=== PATIENT | female | born 1990 | race Two or more races ===

== ENCOUNTER 2023-08-23 11:17 | Observation (INO) | payer MEDICAID | END 2023-08-23 13:11 | disposition home or self-care (01) | LOC: UNDOADMOB 11:17 → LDRP 11:17 → UNDODISOB 13:11 | PROVIDERS: ADMIT Obstetrics & Gynecology; ATTEND Obstetrics & Gynecology | DX: O24.419 Gestational diabetes mellitus in pregnancy, unspecified control (principal); Z3A.32 32 weeks gestation of pregnancy | CPT/HCPCS: 59025; 76818; 81002; 82948; 94760; G0378 ==

== ENCOUNTER 2023-08-30 10:50 | Observation (INO) | payer MEDICAID | END 2023-08-30 12:01 | disposition home or self-care (01) | LOC: LDRP 10:50 → UNDOADMOB 10:50 → LDRP 10:57 → UNDODISOB 12:01 | PROVIDERS: ADMIT Obstetrics & Gynecology; ATTEND Obstetrics & Gynecology | DX: O24.419 Gestational diabetes mellitus in pregnancy, unspecified control (principal); O26.893 Other specified pregnancy related conditions, third trimester; R51.9 Headache, unspecified; Z3A.33 33 weeks gestation of pregnancy | CPT/HCPCS: 59025; 76818; 81002; 82948; 82962; 94760; G0378 ==

== ENCOUNTER 2023-09-06 11:30 | Observation (INO) | payer MEDICAID ==
[2023-09-06] MEDS ORDERED: PREN27TA7 OR (12:46)
== END 2023-09-06 12:52 | disposition home or self-care (01) ==
LOC: LDRP 11:30 → UNDOADMOB 11:30 → LDRP 11:41 → UNDODISOB 12:52
PROVIDERS: ADMIT Obstetrics & Gynecology; ATTEND Obstetrics & Gynecology
DX: O24.419 Gestational diabetes mellitus in pregnancy, unspecified control (principal); Z3A.34 34 weeks gestation of pregnancy
CPT/HCPCS: 59025; 76818; 81002; 82962; 94760; G0378

== ENCOUNTER 2023-09-13 09:20 | Observation (INO) | payer MEDICAID ==
[~2023-09-13 09:20] MED LIST: PREN27TA7 OR
== END 2023-09-13 13:28 | disposition home or self-care (01) ==
LOC: LDRP 11:05
PROVIDERS: ADMIT Obstetrics & Gynecology; ATTEND Obstetrics & Gynecology
DX: O24.419 Gestational diabetes mellitus in pregnancy, unspecified control (principal); Z3A.35 35 weeks gestation of pregnancy
CPT/HCPCS: 59025; 76818; 81002; 82948; 94760; G0378

== ENCOUNTER 2023-09-21 10:13 | Observation (INO) | payer MEDICAID | END 2023-09-21 14:45 | disposition home or self-care (01) | LOC: OVERFLOW 10:13 → LDRP 11:29 | PROVIDERS: ADMIT Obstetrics & Gynecology; ATTEND Obstetrics & Gynecology | DX: O24.419 Gestational diabetes mellitus in pregnancy, unspecified control (principal); Z3A.36 36 weeks gestation of pregnancy | CPT/HCPCS: 59025; 76818; 81002; 82962; 94760; G0378 ==

== ENCOUNTER 2023-09-23 08:00 | Observation (INO) | payer MEDICAID | END 2023-09-23 10:36 | disposition home or self-care (01) | LOC: LDRP 08:00 | PROVIDERS: ADMIT Obstetrics & Gynecology; ATTEND Obstetrics & Gynecology | DX: O24.419 Gestational diabetes mellitus in pregnancy, unspecified control (principal); Z3A.37 37 weeks gestation of pregnancy | CPT/HCPCS: 59025; 76818; 81002; 82948; 82962; G0378 ==

== ENCOUNTER 2023-10-03 09:04 | Observation (INO) | payer MEDICAID ==
[2023-10-05] MEDS ORDERED: IBUP-1455 PO (01:39)
== END 2023-10-03 10:48 | disposition home or self-care (01) ==
LOC: UNDOADMOB 09:07 → LDRP 09:07 → UNDODISOB 10:48
PROVIDERS: ADMIT Obstetrics & Gynecology; ATTEND Obstetrics & Gynecology
DX: O24.419 Gestational diabetes mellitus in pregnancy, unspecified control (principal); O62.9 Abnormality of forces of labor, unspecified; Z3A.38 38 weeks gestation of pregnancy
CPT/HCPCS: 59025; 76818; 81002; 82948; 82962; 94760; G0378

== ENCOUNTER → 2024-04-23 | Outpatient (CLI) | payer MEDICAID ==
[~2024-04-23] MED LIST changes: +IBUP-1455 PO
[2024-04-23 09:19] LABS: Basophils # (auto) 0.1 10 ^3/uL (0-0.2); Basophils % (auto) 0.9 % (0.0-2.0); Eosinophils # (auto) 0.1 10 ^3/uL (0-0.8); Eosinophils % (auto) 1.5 % (0.0-7.0); Hematocrit 42.2 % (36.0-46.0); Hemoglobin 14.4 g/dL (12.2-16.2); Lymphocytes # (auto) 2.2 10 ^3/uL (0.4-5.4); Mean Corpuscular Hemoglobin 29.5 pg (28.0-32.0); Mean Corpuscular Hgb Conc. 34.2 g/dL (32.0-36.0); Mean Corpuscular Volume 86.1 fL (80.0-100.0); Monocytes # (auto) 0.3 10 ^3/uL (0-1.3); Neutrophils # (auto) 4.2 10 ^3/uL (1.6-8.6); Neutrophils % (auto) 60.6 % (37.0-80.0); Nucleated Red Blood Cells % 0.2 %; Red Cell Distribution Width 13.3 % (11.8-14.3); White Blood Cell 6.9 10^3/uL (4.4-10.8)
[2024-04-23 10:07] LABS: Alanine Aminotransferase 23 U/L (7-40); Alkaline Phosphatase 132 U/L (46-116); Anion Gap 8 (5-15); Aspartate Aminotransferase < 8 U/L (13-40); BUN/Creatinine Ratio 11.5 (10.0-20.0); Bilirubin, Total 0.6 mg/dL (0.2-1.0); Blood Urea Nitrogen 9 mg/dL (9-23); Calcium 10.4 mg/dL (8.7-10.4); Carbon Dioxide 27 mmol/L (20-30); Chloride 106 mmol/L (98-107); Cholesterol 171 mg/dL (< 200); Glucose 99 mg/dL (74-106); HDL Cholesterol 46 mg/dL (40-59); LDL Cholesterol 120 mg/dL (< 100); Potassium 4.3 mmol/L (3.5-5.1); Sodium 141 mmol/L (136-145); Triglycerides 110 mg/dL (< 150)
== END | disposition home or self-care (01) ==
LOC: LAB 08:55
DX: Z13.21 Encounter for screening for nutritional disorder (principal); R73.03 Prediabetes; Z68.35 Body mass index [BMI] 35.0-35.9, adult
CPT/HCPCS: 36415; 80053; 80061; 82306; 83036; 84436; 84443; 85025

== ENCOUNTER 2025-04-27 17:08 | Inpatient (IN) | payer MEDICAID ==
[~2025-04-27] VITALS: Ht 160 cm; Wt 103.9 kg
[2025-04-27] MEDS ORDERED: PANTOPRAZOLE 40 MG/10 ML VIAL INJ IV ONE (17:45)
--- NOTE | 2025-04-27 17:53 | ED.PDOC ---
GI ASSESSMENT HPI Comments 34y F who presents to the ED for chief complaint of abdominal pain. Pt states she has been having abdominal pain for the past few months since she gave . Pt states the symptoms exacerbated so she came to the ED today for further evaluation. Pt states her pain is diffusely located, intermittent, radiating to the back, rating the pain 8/10, with no associated exacerbating or relieving factors. Pt has associated shortness of breath and nausea but denies any other symptoms. Pt denies any other symptoms at this time. Chief Complaint: Abdominal Pain Time Seen by MD: 17:51 Reviewed Notes: Nurses Notes, Medications, Allergies Allergies: Coded Allergies: NO KNOWN ALLERGIES (Unverified , 10/04/23) Home Meds Active Scripts Ibuprofen Micronized (Ibuprofen) 800 Mg Tab, 800 MG PO Q6HR PRN, #30 TAB Prov:KOSTAS JACKSON DO 10/05/23 Reported Medications Vit W/ Ferrous Fumara () 1 Tab Tab, 1 TAB OR, TAB 09/06/23 Information Source: Patient Mode of Arrival: Ambulatory Brought in by: self Timing: Weeks, Months Duration: Since onset Prehospital treatment: None Quality: Aching, Sharp Vomitus: None Stool: Normal Severity: Moderate Recent: None Recent Hx of: None Pain Location: Diffuse Modifying Factors: Nothing Associated sign and symptoms: Nausea, Abdominal Pain, Other (shortness of breath) Past Medical History PAST MEDICAL HISTORY: Denies Surgical History: Denies all surgeries PHLEBOTOMIST ASSOCIATE History: Denies all PHLEBOTOMIST ASSOCIATE Hx Family History Family History: Reviewed,noncontributory to illness Social History Smoker: Non-Smoker Alcohol: Denies ETOH Use Drugs: Denies Drug Use Lives In: Home Constitutional: denies: chills, diaphoresis, fatigue, fever, malaise, sweats, weakness, others EENTM: denies: blurred vision, double vision, ear bleeding, ear discharge, ear drainage, ear pain, ear ringing, eye pain, eye redness, hearing loss, mouth pain, mouth swelling, nasal discharge, nose bleeding, nose congestion, nose pain, photophobia, tearing, throat pain, throat swelling, voice changes, others Respiratory: reports: shortness of breath; denies: cough, hemoptysis, orthopnea, SOB at rest, SOB with excertion, stridor, wheezing, others Cardiovascular: denies: chest pain, dizzy spells, diaphoresis, Dyspnea on exertion, edema, irregular heart beat, left arm pain, lightheadedness, palpitations, PND, syncope, others Gastrointestinal: reports: abdominal pain, nausea; denies: abdomen distended, blood streaked bowels, constipated, diarrhea, dysphagia, difficulty swallowing, hematemesis, melena, poor appetite, poor fluid intake, rectal bleeding, rectal pain, vomiting, others Genitourinary: denies: abnormal vagina bleeding, burning, dyspareunia, dysuria, flank pain, frequency, hematuria, incontinence, pain, , vagina discharge, urgency, others Neurological: denies: dizziness, fainting, headache, left sided numbness, left sided weakness, numbness, paresthesia, pre-existing deficit, right sided numbness, right sided weakness, seizure, speech problems, tingling, tremors, weakness, others Musculoskeletal: denies: back pain, gout, joint pain, joint swelling, muscle pain, muscle stiffness, neck pain, others Integumetry: denies: bruises, change in color, change in hair/nails, dryness, laceration, lesions, lumps, rash, wounds, others Allergic/Immunocompromised: denies: Difficulty Healing, Frequent Infections, Hives, Itching, others Hematologic/Lymphatic: denies: anemia, blood clots, easy bleeding, easy bruising, swollen glands, others Endocrine: denies: excessive hunger, excessive sweating, excessive thirst, excessive urination, flushing, intolerance to cold, intolerance to heat, unexplained weight gain, unexplained weight loss, others Psychiatric: denies: anxiety, bipolar disorder, depression, hopeless, panic disorder, schizophrenia, sleepless, suicidal, others All Other Systems: Reviewed and Negative Physical Exam General Appearance: Moderate Distress, Obese HEENT: Normal ENT Inspection, Pharynx Normal, TMs Normal Neck: Full Range of Motion, Non-Tender, Normal, Normal Inspection Respiratory: Chest Non-Tender, Lungs Clear, No Accessory Muscle Use, No Respiratory Distress, Normal Breath Sounds Cardiovascular: No Edema, No JVD, No Murmur, No Gallop, Normal Peripheral Pulses, Regular Rate/Rhythm Breast Exam: Deferred Gastrointestinal: Epigastric, No Organomegaly, No Pulsatile Mass, Normal Bowel Sounds, Soft, Tenderness Genitalia: Deferred Pelvic: Deferred Rectal: Deferred Extremities: No calf tenderness, Normal capillary refill, Normal inspection, Normal range of motion, Non-tender, No pedal edema Musculoskeletal : Apperance: Normal Neurologic: Alert, oliver filter operator II-XII nml as Tested, No Motor Deficits, Normal Affect, Normal Mood, No Sensory Deficits Cerebellar Function: Normal Reflexes: Normal Skin: Dry, Normal Color, Warm Lymphatic: No Adenopathy Was a procedure done? Was a procedure done?: No GI differential Dx Differential Diagnosis: Esophagitis, Gastritis/PUD, Gastroenteritis, Pancreatitis, Dehydration, Food Poisoning, Bacterial, Viral, Stress Ulcer, Kidney Stone X-Ray, Labs, Meds, VS Vital Signs Date Time Temp Pulse Resp B/P (MAP) Pulse Ox O2 Delivery O2 Flow Rate FiO2 04/27/25 17:09 99.0 76 20 133/64 97 99.0 Lab Test 04/27/25 18:05 04/27/25 17:12 Range/Units White Blood Count 11.4 H 4.4-10.8 10^3/uL Red Blood Count 4.76 4.0-5.20 10^6/uL Hemoglobin 14.1 12.2-16.2 g/dL Hematocrit 40.9 36.0-46.0 % Mean Corpuscular Volume 85.9 80.0-100.0 fL Mean Corpuscular Hemoglobin 29.5 28.0-32.0 pg Mean Corpuscular Hemoglobin Concent 34.4 32.0-36.0 g/dL Red Cell Distribution Width 13.0 11.8-14.3 % Platelet Count 362 140-450 10^3/uL Mean Platelet Volume 7.0 6.9-10.8 fL Neutrophils (%) (Auto) 69.3 37.0-80.0 % Lymphocytes (%) (Auto) 22.4 10.0-50.0 % Monocytes (%) (Auto) 6.3 0.0-12.0 % Eosinophils (%) (Auto) 1.4 0.0-7.0 % Basophils (%) (Auto) 0.6 0.0-2.0 % Neutrophils # (Auto) 7.9 1.6-8.6 10 ^3/uL Lymphocytes # (Auto) 2.6 0.4-5.4 10 ^3/uL Monocytes # (Auto) 0.7 0-1.3 10 ^3/uL Eosinophils # (Auto) 0.2 0-0.8 10 ^3/uL Basophils # (Auto) 0.1 0-0.2 10 ^3/uL Nucleated Red Blood Cells 0.0 % Sodium Level 141 136-145 mmol/L Potassium Level 3.5 3.5-5.1 mmol/L Chloride Level 104 98-107 mmol/L Carbon Dioxide Level 28 20-31 mmol/L Anion Gap 9 5-15 Blood Urea Nitrogen 9 9-23 mg/dL Creatinine 0.77 0.550-1.02 mg/dL Glomerular Filtration Rate Calc 103 >90 mL/min BUN/Creatinine Ratio 11.7 10.0-20.0 Serum Glucose 99 74-106 mg/dL Calcium Level 9.6 8.7-10.4 mg/dL Total Bilirubin 0.4 0.2-1.0 mg/dL Aspartate Amino Transferase (AST) 19 13-40 U/L Alanine Aminotransferase (ALT) 22 7-40 U/L Alkaline Phosphatase 105 46-116 U/L Total Protein 7.5 5.7-8.2 g/dL Albumin 4.6 3.2-4.8 g/dL Lipase 48 12-53 U/L Urine Color Colorless Yellow Urine Clarity Clear Clear Urine pH 6.0 5.0-9.0 Urine Specific [place] 1.008 1.001-1.035 Urine Protein Negative Negative Urine Ketones Negative Negative Urine Blood Negative Negative /uL Urine Nitrite Negative Negative Urine Bilirubin Negative Negative Urine Urobilinogen Normal Negative mg/dL Urine Leukocyte Esterase Negative Negative /uL Urine RBC <1 0 - 4 /hpf Urine Microscopic WBC 2 0-5 /HPF Urine Squamous Epithelial Cells Few <5 /hpf Urine Bacteria Few H None Seen /hpf Urine Glucose Normal Normal mg/dL PROCEDURE(s): GBUS - GALLBLADDER IMPRESSION: 1. Cholelithiasis with no dilated ducts or thickened gallbladder wall. Negative sonographic sanchez's sign. 2. Hepatomegaly with steatosis. Liver measures 19.4 cm in length. 3. Right kidney measures 10.4 cm appears normal IV Hep-Lock was established The patient is being given morphine for the pain and Zofran for the nausea The patient is also being given Protonix 40 mg IV push The patient's CBC is within normal limits except for an elevated white blood cell count of 11.4 The chemistry panel and liver enzymes are negative The urine test is negative The patient is being admitted at this time Images Reviewed?: Images reviewed and evaluated by me Time of 1ST Reevaluation: 19:31 Reevaluation 1ST: Unchanged Patient Education/Counseling: Diagnosis, Treatment, Prognosis Family Education/Counseling: No Family Present SEPSIS Sepsis Screen Date sepsis recognized/suspect: Apr 27, 2025 Time Sepsis recognized/suspect: 1710 Recent Procedure: No On Antibiotic Therapy: No Respiratory Rate >20: No Heart Rate >90: No Temp<36 C (96.8 F) or >38.3 C: No SBP <90 or MAP <65 mmHG: No New Acute Mental Status Change: No Is the patient on CPAP, BIPAP,: No Physician Orders Heplock Iv (04/27/25 17:37) Gallbladder (04/27/25 17:37) Pantoprazole (Protonix) (04/28/25 10:00) Pantoprazole (Protonix) (04/27/25 20:00) Ceftriaxone 1gm/50ml D5w (Rocephin) (04/28/25 09:00) Ceftriaxone 1gm/50ml D5w (Rocephin) (04/27/25 20:00) Allergies (04/27/25 19:48) Code Status (04/27/25 19:48) Sodium Chloride Lock (Saline Lock Ns) (04/27/25 22:00) Oxygen Per Hour (04/27/25 19:48) Hydrocodone-Acet 5/325mg Tab ([place] 5/32 (04/27/25 20:00) Ondansetron Hcl (Zofran) (04/27/25 20:00) Docusate Sodium Capsule (Colace Capsule) (04/27/25 20:00) Complete Blood Count (04/28/25 04:00) Comprehensive Metabolic Panel (04/28/25 04:00) Condition: Serious (04/27/25 19:48) Acetaminophen Tablet (Tylenol Tablet) (04/27/25 20:00) Clear Liq Diet (04/28/25 Breakfast) Bedrest With Bathroom Privileg (04/27/25 19:48) Morphine Sulfate Injection (04/27/25 20:00) Sequential Compression Device (04/27/25 ) Vital Signs Date Time Temp Pulse Resp B/P (MAP) Pulse Ox O2 Delivery O2 Flow Rate FiO2 04/27/25 17:09 99.0 76 20 133/64 97 99.0 Laboratory Tests Test 04/27/25 18:05 White Blood Count 11.4 10^3/uL (4.4-10.8) H Departure 1 Departure Time of Disposition: 19:31 Impression: Primary Impression: Intractable abdominal pain Additional Impression: Cholelithiasis Qualified Codes: K80.20 - Calculus of gallbladder without cholecystitis without obstruction Disposition: ADMITTED INPATIENT Admit to: Med Surg Condition: Fair Critical Care Note Critical Care Time?: No Stability Stability form required: Yes Unstable for transfer: ED Physician Assesment (Clinical assesment) Heart Score Heart Score: Heart Score Response (Comments) Value History N/A 0 EKG N/A 0 Age N/A 0 Risk Factors N/A 0 Troponin N/A 0 Total 0 I personally scribed for CHARLOTTE TAMAYO MD ([email or web address]) on 04/27/25 at 17:53. Electronically submitted by Sylvie Sung ([email or web address]). I personally scribed for CHARLOTTE TAMAYO MD ([email or web address]) on 04/27/25 at 18:49. Electronically submitted by Sylvie Sung ([email or web address]). CHARLOTTE TAMAYO MD Apr 27, 2025 17:53
[2025-04-27 18:14] LABS: Urine Protein, UAD Negative (Negative)
--- NOTE | 2025-04-27 18:15 | DVH ---
INDICATION: pain TECHNIQUE: Multiple real-time sonographic images of the abdomen were obtained. COMPARISON: None FINDINGS: Increased echogenicity of the hepatic parenchyma consistent with steatosis. The liver measu res 19.4 cm. No intrahepatic biliary ductal dilatation is noted. The gallbladder wall measures 0.18 cm and is unremarkable. Cholelithiasis The common duct measures 0.42 cm and is unremarkable. No pericholecystic fluid is noted. Negative sonographic Padron's sign The right kidney measures 10.4 cm. No hydronephrosis. The pancreas is well visualized due to obscuration from bowel gas. IMPRESSION: 1. Cholelithiasis with no dilated ducts or thickened gallbladder wall. Negative sonographic padron's sign. 2. Hepatomegaly with steatosis. Liver measures 19.4 cm in length. 3. Right kidney measures 10.4 cm appears normal
[2025-04-27 18:20] LABS: Hematocrit 40.9 % (36.0-46.0); Hemoglobin 14.1 g/dL (12.2-16.2); Mean Corpuscular Hemoglobin 29.5 pg (28.0-32.0); Mean Corpuscular Volume 85.9 fL (80.0-100.0); Nucleated Red Blood Cells % 0.0 %
[2025-04-27 18:37] LABS: Alanine Aminotransferase 22 U/L (7-40); Albumin 4.6 g/dL (3.2-4.8); Alkaline Phosphatase 105 U/L (46-116); Anion Gap 9 (5-15); BUN/Creatinine Ratio 11.7 (10.0-20.0); Bilirubin, Total 0.4 mg/dL (0.2-1.0); Blood Urea Nitrogen 9 mg/dL (9-23); Calcium 9.6 mg/dL (8.7-10.4); Carbon Dioxide 28 mmol/L (20-31); Chloride 104 mmol/L (98-107); Glucose 99 mg/dL (74-106); Lipase 48 U/L (12-53); Sodium 141 mmol/L (136-145); Total Protein 7.5 g/dL (5.7-8.2)
[2025-04-27 18:48] LABS: Potassium 3.5 mmol/L (3.5-5.1)
[2025-04-27] MEDS ORDERED: DOCUSATE SOD 100 MG CAP PO PRN (20:00)
[2025-04-27] MEDS ORDERED: ACETAMINOPHEN 325 MG TAB PO PRN (20:00)
[2025-04-27] MEDS ORDERED: HYDROcodone-ACET 5/325MG TAB PO PRN (20:00)
[2025-04-27] MEDS ORDERED: MORPHINE SULFATE INJ 2 MG/ml SYRG IV PRN ×2 (20:00→20:45)
[2025-04-27] MEDS ORDERED: ONDANSETRON HCL 4 MG/2 ML VIAL IV PRN (20:00)
[2025-04-27] MEDS ORDERED: NITROGLYCERIN 0.4 MG SL TAB SL PRN (20:45)
--- NOTE | 2025-04-27 20:50 | DVHHP2 ---
History of Present Illness Reason for Visit: Acute abdominal pain History of Present Illness The patient is a 34-year-old female who denies past medical history presented to [facility] ED with complaint of abdominal pain. Patient reports she has been experiencing intermittent abdominal pain for the past few months, radiating to her back, rating pain 8/10 numeric scale, associated with nausea, getting worse today that prompted this visit. Patient was seen and evaluated in the ED, laboratory data shows WBC 11.4, platelets 362, sodium 141, potassium 3.5, BUN nine, creatinine 0.77, glucose 99, calcium 9.6, lipase 48, blood pressure 133/64, heart rate 96, temperature 99.0 F, O2 saturation 97% on room air. Abdomen/pelvis CT revealing cholelithiasis with no dilated ducts or thickened gallbladder wall, negative sonographic Padron's sign. Patient was started on IV antibiotic regimen Rocephin, given morphine sulfate 4 mg IV x1, please see medication orders section in the computer. On my assessment, patient denied chest pain, no headache, no dizziness, no shortness of breath, no abdominal pain, nausea or vomiting at this moment, no fever, no chills. Patient was admitted for further evaluation and medical management. Past Medical History Denies past medical history Past Surgical History Denies all surgeries Family History Reviewed, noncontributory to the management of this case. Past Social History The patient lives at home, denies smoking, alcohol or illicit drugs abuse. Review of Systems Constitutional: No: Fever, Chills, Sweats, Weakness, Malaise, Other Eyes: No: Pain, Vision change, Conjunctivae inflammation, Eyelid inflammation, Other, Redness ENT: No: Ear pain, Ear discharge, Nose pain, Nose discharge, Nose congestion, Mouth pain, Mouth swelling, Throat pain, Throat swelling, Other Respiratory: No: Cough, Dry, Shortness of breath, SOB with excertion, Wheezing, Hemoptysis, Pleuritic Pain, Sputum, Wheezing, Other Cardiovascular: No: Chest Pain, Palpitations, Orthopnea, Paroxysmal Noc. Dyspnea, Edema, Lt Headedness, Other Gastrointestinal: Nausea, Abdominal Pain; No: Vomiting, Diarrhea, Constipation, Melena, Hematochezia, Other Genitourinary: No Dysuria, No Frequency, No Incontinence, No Hematuria, No Retention, No Other Musculoskeletal: No: other, neck pain, shoulder pain, arm pain, back pain, hand pain, leg pain, foot pain Skin: No: Rash, Lesions, Jaundice, Bruising, Other Neurological: No: Weakness, Numbness, Incoordination, Change in speech, Confusion, Seizures, Other Allergies: Coded Allergies: NO KNOWN ALLERGIES (Unverified , 10/04/23) Medications Current Medications Medications Dose Ordered Sig/Ok Route Start Time Stop Time Status Last Admin Dose Admin Pantoprazole Sodium 40 mg DAILY IV 04/28/25 10:00 Ceftriaxone Sodium 50 ml @ 100 mls/hr DAILY@09 IV 04/28/25 09:00 Sodium Chloride 10 ml Q8HR IV 04/27/25 22:00 Acetaminophen/ Hydrocodone Bitart 1 tab Q4HP PRN PO 04/27/25 20:00 Ondansetron HCl 4 mg Q4HP PRN IV 04/27/25 20:00 Docusate Sodium 100 mg BIDPRN PRN PO 04/27/25 20:00 Acetaminophen 650 mg Q6HP PRN PO 04/27/25 20:00 Morphine Sulfate 2 mg Q4HPRN PRN IV 04/27/25 20:00 Exam Vital Signs Vital Signs Date Time Temp Pulse Resp B/P (MAP) Pulse Ox O2 Delivery O2 Flow Rate FiO2 04/27/25 17:09 99.0 76 20 133/64 97 99.0 General Appearance: Alert, Oriented X3, Cooperative, No acute distress HEENT: Atraumatic, PERRLA, EOMI, Mucous membr. moist/pink Respiratory: Clear to auscultation, Normal air movement Cardiovascular: Regular rate, Normal S1, Normal S2, No murmurs Abdominal: Normal bowel sounds, Soft, No hepatospenomegaly, No masses, Other (Reports tenderness) Extremities: No clubbing, No cyanosis, No edema, Normal pulses, No tenderness/swelling Skin: No rashes, No breakdown, No significant lesion Neuro: Normal gait, Normal speech, Strength at 5/5 X4 ext, Normal tone, Sensation intact, Cranial nerves 3-12 NL, Reflexes 2+ Psych/Mental Status: Mental status NL, Mood NL Labs/Xrays Labs Test 04/27/25 18:05 04/27/25 17:12 Range/Units White Blood Count 11.4 H 4.4-10.8 10^3/uL Red Blood Count 4.76 4.0-5.20 10^6/uL Hemoglobin 14.1 12.2-16.2 g/dL Hematocrit 40.9 36.0-46.0 % Mean Corpuscular Volume 85.9 80.0-100.0 fL Mean Corpuscular Hemoglobin 29.5 28.0-32.0 pg Mean Corpuscular Hemoglobin Concent 34.4 32.0-36.0 g/dL Red Cell Distribution Width 13.0 11.8-14.3 % Platelet Count 362 140-450 10^3/uL Mean Platelet Volume 7.0 6.9-10.8 fL Neutrophils (%) (Auto) 69.3 37.0-80.0 % Lymphocytes (%) (Auto) 22.4 10.0-50.0 % Monocytes (%) (Auto) 6.3 0.0-12.0 % Eosinophils (%) (Auto) 1.4 0.0-7.0 % Basophils (%) (Auto) 0.6 0.0-2.0 % Neutrophils # (Auto) 7.9 1.6-8.6 10 ^3/uL Lymphocytes # (Auto) 2.6 0.4-5.4 10 ^3/uL Monocytes # (Auto) 0.7 0-1.3 10 ^3/uL Eosinophils # (Auto) 0.2 0-0.8 10 ^3/uL Basophils # (Auto) 0.1 0-0.2 10 ^3/uL Nucleated Red Blood Cells 0.0 % Sodium Level 141 136-145 mmol/L Potassium Level 3.5 3.5-5.1 mmol/L Chloride Level 104 98-107 mmol/L Carbon Dioxide Level 28 20-31 mmol/L Anion Gap 9 5-15 Blood Urea Nitrogen 9 9-23 mg/dL Creatinine 0.77 0.550-1.02 mg/dL Glomerular Filtration Rate Calc 103 >90 mL/min BUN/Creatinine Ratio 11.7 10.0-20.0 Serum Glucose 99 74-106 mg/dL Calcium Level 9.6 8.7-10.4 mg/dL Total Bilirubin 0.4 0.2-1.0 mg/dL Aspartate Amino Transferase (AST) 19 13-40 U/L Alanine Aminotransferase (ALT) 22 7-40 U/L Alkaline Phosphatase 105 46-116 U/L Total Protein 7.5 5.7-8.2 g/dL Albumin 4.6 3.2-4.8 g/dL Lipase 48 12-53 U/L Urine Color Colorless Yellow Urine Clarity Clear Clear Urine pH 6.0 5.0-9.0 Urine Specific [place] 1.008 1.001-1.035 Urine Protein Negative Negative Urine Ketones Negative Negative Urine Blood Negative Negative /uL Urine Nitrite Negative Negative Urine Bilirubin Negative Negative Urine Urobilinogen Normal Negative mg/dL Urine Leukocyte Esterase Negative Negative /uL Urine RBC <1 0 - 4 /hpf Urine Microscopic WBC 2 0-5 /HPF Urine Squamous Epithelial Cells Few <5 /hpf Urine Bacteria Few H None Seen /hpf Urine Glucose Normal Normal mg/dL PATIENT: KASHMIR MIKE ACCT: [id number] UNIT: [id number] : 1990 LOC: ER ROOM / BED: / AGE / SEX: 34 / F ADM STATUS: REG ER SERVICE [id number] ORDERING PHYSICIAN: CHARLOTTE TAMAYO MD PROCEDURE(s): GBUS - GALLBLADDER REASON: pain ORDER NUMBER(s): [id number], ACCESSION NUMBER(s): [id number] INDICATION: pain TECHNIQUE: Multiple real-time sonographic images of the abdomen were obtained. COMPARISON: None FINDINGS: Increased echogenicity of the hepatic parenchyma consistent with steatosis. The liver measures 19.4 cm. No intrahepatic biliary ductal dilatation is noted. The gallbladder wall measures 0.18 cm and is unremarkable. Cholelithiasis The common duct measures 0.42 cm and is unremarkable. No pericholecystic fluid is noted. Negative sonographic Padron's sign The right kidney measures 10.4 cm. No hydronephrosis. The pancreas is well visualized due to obscuration from bowel gas. IMPRESSION: 1. Cholelithiasis with no dilated ducts or thickened gallbladder wall. Negative sonographic padron's sign. 2. Hepatomegaly with steatosis. Liver measures 19.4 cm in length. 3. Right kidney measures 10.4 cm appears normal SEPSIS Sepsis Screen Date sepsis recognized/suspect: Apr 27, 2025 Time Sepsis recognized/suspect: 1710 Recent Procedure: No On Antibiotic Therapy: No Respiratory Rate >20: No Heart Rate >90: No Temp<36 C (96.8 F) or >38.3 C: No SBP <90 or MAP <65 mmHG: No New Acute Mental Status Change: No Is the patient on CPAP, BIPAP,: No Physician Orders Heplock Iv (04/27/25 17:37) Gallbladder (04/27/25 17:37) Pantoprazole (Protonix) (04/28/25 10:00) Ceftriaxone 1gm/50ml D5w (Rocephin) (04/28/25 09:00) Allergies (04/27/25 19:48) Code Status (04/27/25 19:48) Sodium Chloride Lock (Saline Lock Ns) (04/27/25 22:00) Oxygen Per Hour (04/27/25 19:48) Hydrocodone-Acet 5/325mg Tab ([place] 32 (04/27/25 20:00) Ondansetron Hcl (Zofran) (04/27/25 20:00) Docusate Sodium Capsule (Colace Capsule) (04/27/25 20:00) Complete Blood Count (04/28/25 04:00) Comprehensive Metabolic Panel (04/28/25 04:00) Condition: Serious (04/27/25 19:48) Acetaminophen Tablet (Tylenol Tablet) (04/27/25 20:00) Clear Liq Diet (04/28/25 Breakfast) Bedrest With Bathroom Privileg (04/27/25 19:48) Morphine Sulfate Injection (04/27/25 20:00) Sequential Compression Device (04/27/25 ) Admit (04/27/25 20:35) Nitroglycerin Sublingual (Ntrostat Subli (04/27/25 20:45) Morphine Sulfate Injection (04/27/25 20:45) Notify Md Of Changes From Base (04/27/25 20:35) Emergency Dysrhythmia Protocol (04/27/25 20:35) Oxygen By Nasal Cannula (04/27/25 20:35) Vital Signs Date Time Temp Pulse Resp B/P (MAP) Pulse Ox O2 Delivery O2 Flow Rate FiO2 04/27/25 17:09 99.0 76 20 133/64 97 99.0 Laboratory Tests Test 04/27/25 18:05 White Blood Count 11.4 10^3/uL (4.4-10.8) H Assessment/Plan Assessment/Plan Intractable abdominal pain Cholelithiasis Leukocytosis, unspecified Calculus of gallbladder without cholecystitis without obstruction Plan 1. Admit to med surge unit 2. Breathing treatment 3. Pain control management 4. IV antibiotic management 5. Management of fluids and electrolytes 6. Consultation for hospitalist 7. Diagnostic test abdomen/pelvis CT 8. DVT prophylaxis on SCDs 9. Repeat labs CBC, CMP in a.m. 10. Home medication reviewed and reconciled 11. Continue with current medical management 12. Treatment plan discussed with patient and RN. Patient verbalized understanding. Plan discussed with: Patient, Other (RN) My Orders Orders - ALEXANDER MORA DNP Procedure Category Date Status Time Pantoprazole PHA 04/28/25 In Process (Protonix) 10:00 Ceftriaxone 1gm/50ml PHA 04/28/25 In Process D5w (Rocephin) 09:00 Allergies BARB 04/27/25 In Process 19:48 Code Status CODE 04/27/25 Transmitted 19:48 Sodium Chloride Lock PHA 04/27/25 In Process (Saline Lock Ns) 22:00 Oxygen Per Hour RT 04/27/25 Transmitted 19:48 Hydrocodone-Acet PHA 04/27/25 In Process 5/325mg Tab ([place] 20:00 Ondansetron Hcl PHA 04/27/25 In Process (Zofran) 20:00 Docusate Sodium PHA 04/27/25 In Process Capsule (Colace 20:00 Complete Blood Count LAB 04/28/25 Verified 04:00 Comprehensive LAB 04/28/25 Verified Metabolic Panel 04:00 Condition: Serious BARB 04/27/25 In Process 19:48 Acetaminophen Tablet PHA 04/27/25 In Process (Tylenol Tablet) 20:00 Clear Liq Diet DIET 04/28/25 Transmitted Breakfast Bedrest With Bathroom BARB 04/27/25 In Process Privileg 19:48 Morphine Sulfate PHA 04/27/25 In Process Injection 20:00 Sequential BARB 04/27/25 In Process Compression Device Admit ADMIT 04/27/25 Transmitted 20:35 Nitroglycerin PHA 04/27/25 Transmitted Sublingual (Ntrostat 20:45 Morphine Sulfate PHA 04/27/25 Transmitted Injection 20:45 Notify Of Changes BARB 04/27/25 Transmitted From Base 20:35 Emergency Dysrhythmia BARB 04/27/25 Transmitted Protocol 20:35 Oxygen By Nasal RT 04/27/25 Transmitted Cannula 20:35 Problem List: (1) Intractable abdominal pain (2) Cholelithiasis (3) Leukocytosis, unspecified (4) Calculus of gallbladder without cholecystitis without obstruction Date of Service: Apr 27, 2025 Billing Provider: ALEXANDER MORA DNP Common Visit Codes: [id number] INP/OBS CARE (MOD) ALEXANDER MORA DNP Apr 27, 2025 20:49
[2025-04-27] MEDS ORDERED: SODIUM CHLOR 0.9% PF (SALINE LOCK) 10ML VIAL/SYR IV SCH (22:00)
[2025-04-28 03:48] LABS: Hematocrit 40.5 % (36.0-46.0); Hemoglobin 14.0 g/dL (12.2-16.2); Mean Corpuscular Hemoglobin 29.8 pg (28.0-32.0); Mean Corpuscular Volume 86.0 fL (80.0-100.0); Nucleated Red Blood Cells % 0.2 %
[2025-04-28 04:16] LABS: Alanine Aminotransferase 24 U/L (7-40); Alkaline Phosphatase 106 U/L (46-116); Anion Gap 9 (5-15); BUN/Creatinine Ratio 10.4 (10.0-20.0); Calcium 9.5 mg/dL (8.7-10.4); Carbon Dioxide 27 mmol/L (20-31); Chloride 105 mmol/L (98-107); Potassium 3.7 mmol/L (3.5-5.1); Sodium 141 mmol/L (136-145); Total Protein 7.6 g/dL (5.7-8.2)
[2025-04-28 04:17] LABS: Bilirubin, Total 0.5 mg/dL (0.2-1.0)
[2025-04-28 04:20] LABS: Albumin 4.8 g/dL (3.2-4.8); Blood Urea Nitrogen 8 mg/dL (9-23); Glucose 109 mg/dL (74-106)
[2025-04-28] MEDS ORDERED: cefTRIAXone 1GM/50ML D5W 50 ML IV SCH (09:00)
[2025-04-28] MEDS ORDERED: PANTOPRAZOLE 40 MG/10 ML VIAL INJ IV SCH (10:00)
[2025-04-28] MEDS: MORPHINE SULFATE 4 MG/ML SYR/VIAL IV ONE (10:37)
[2025-04-28] MEDS: ONDANSETRON HCL 4 MG/2 ML VIAL IV ONE (10:38)
[2025-04-28] MEDS: SODIUM CHLORIDE 0.9% 500 ML IVB ONE (10:38)
[2025-04-28] MEDS: PANTOPRAZOLE 40 MG/10 ML VIAL INJ IV ONE (10:39)
[2025-04-28] MEDS: cefTRIAXone 1GM/50ML D5W 50 ML IV ONE (10:39)
[2025-04-28] MEDS: MAALOX PLUS or MAALOX 30 ML GT SCH (14:13)
[2025-04-28 14:40] VITALS: BP 129/70; PULSE 75; TEMP 98.1; O2SAT 97
--- NOTE | 2025-04-28 15:48 | DVHPN2 ---
Assessment/Plan Assessment/Plan progress note 34 yo F with 3 days of abdominal pain, worse when eating. Reported having symptoms for a couple months. No fever, have chills. no diarrhea. nausea and vomiting prior to admission, vomiting bile, denies blood or coffee ground. have bitter taste in the morning, worse at night. GBUS with stones, negative s onographic sanchez. hepatic steatosis. physical exam aox4 MMM morbidly obese clear breath sounds s1 s2 rrr abdomen soft, epigastric tenderness, negative sanchez, no cva tenderness no le edema labs ekg imaging reviewed assessment and plan interactible abdominal pain cholelithiasis w/o cholecystitis dyspepsia with GERD hepatic steatosis morbid obesity pepcid, maalox will need outpatient urea breath test advance diet as tolerated lifestyle changes diet full liq dvt ppx ambulatory full code Plan discussed with: Patient, Spouse My Orders Orders - MARGIE CHAWLA MD Procedure Category Date Status Time Famotidine Tablet PHA 04/28/25 In Process (Pepcid Tablet) 22:00 Alum & Mag PHA 04/28/25 In Process Hydrox-Simethicone 14:00 Date of Service: Apr 28, 2025 Billing Provider: MARGIE CHAWLA MD Common Visit Codes: [id number] INP/OBS CARE(HIGH) MARGIE CHAWLA MD Apr 28, 2025 15:48
[2025-04-28 17:00] VITALS: BP 115/78; PULSE 81; RESP 18; TEMP 98.5; O2SAT 96
[2025-04-28 20:00] VITALS: PULSE 75; RESP 18; O2SAT 98
[2025-04-28 20:51] VITALS: BP 128/85; PULSE 72; RESP 18; TEMP 98.7; O2SAT 98
[2025-04-28] MEDS: FAMOTIDINE 20 MG TAB PO SCH (21:23)
[2025-04-29 01:00] VITALS: BP 116/69; PULSE 84; RESP 17; TEMP 98.7; O2SAT 98
[2025-04-29 05:00] VITALS: BP 126/78; PULSE 79; RESP 18; TEMP 98.6; O2SAT 98
[2025-04-29 08:00] VITALS: O2SAT 98
[2025-04-29 09:00] VITALS: BP 121/72; PULSE 87; RESP 87; TEMP 98.8; O2SAT 97
--- NOTE | 2025-04-29 11:23 | DVHDS2 ---
Discharge Summary Date of Admission Apr 27, 2025 at 20:35 Date of Discharge: Apr 29, 2025 Labs/Diagnostic Data: Laboratory Results Test 04/28/25 03:35 04/27/25 18:05 04/27/25 17:12 White Blood Count 9.7 10^3/uL (4.4-10.8) Red Blood Count 4.71 10^6/uL (4.0-5.20) Hemoglobin 14.0 g/dL (12.2-16.2) Hematocrit 40.5 % (36.0-46.0) Mean Corpuscular Volume 86.0 fL (80.0-100.0) Mean Corpuscular Hemoglobin 29.8 pg (28.0-32.0) Mean Corpuscular Hemoglobin Concent 34.6 g/dL (32.0-36.0) Red Cell Distribution Width 13.0 % (11.8-14.3) Platelet Count 366 10^3/uL (140-450) Mean Platelet Volume 7.0 fL (6.9-10.8) Neutrophils (%) (Auto) 57.5 % (37.0-80.0) Lymphocytes (%) (Auto) 31.9 % (10.0-50.0) Monocytes (%) (Auto) 7.3 % (0.0-12.0) Eosinophils (%) (Auto) 2.4 % (0.0-7.0) Basophils (%) (Auto) 0.9 % (0.0-2.0) Neutrophils # (Auto) 5.6 10 ^3/uL (1.6-8.6) Lymphocytes # (Auto) 3.1 10 ^3/uL (0.4-5.4) Monocytes # (Auto) 0.7 10 ^3/uL (0-1.3) Eosinophils # (Auto) 0.2 10 ^3/uL (0-0.8) Basophils # (Auto) 0.1 10 ^3/uL (0-0.2) Nucleated Red Blood Cells 0.2 % Sodium Level 141 mmol/L (136-145) Potassium Level 3.7 mmol/L (3.5-5.1) Chloride Level 105 mmol/L (98-107) Carbon Dioxide Level 27 mmol/L (20-31) Anion Gap 9 (5-15) Blood Urea Nitrogen 8 mg/dL (9-23) Creatinine 0.77 mg/dL (0.550-1.02) Glomerular Filtration Rate Calc 103 mL/min (>90) BUN/Creatinine Ratio 10.4 (10.0-20.0) Serum Glucose 109 mg/dL (74-106) Calcium Level 9.5 mg/dL (8.7-10.4) Total Bilirubin 0.5 mg/dL (0.2-1.0) Aspartate Amino Transferase (AST) 19 U/L (13-40) Alanine Aminotransferase (ALT) 24 U/L (7-40) Alkaline Phosphatase 106 U/L (46-116) Total Protein 7.6 g/dL (5.7-8.2) Albumin 4.8 g/dL (3.2-4.8) Lipase 48 U/L (12-53) Urine Color Colorless (Yellow) Urine Clarity Clear (Clear) Urine pH 6.0 (5.0-9.0) Urine Specific Stark 1.008 (1.001-1.035) Urine Protein Negative (Negative) Urine Ketones Negative (Negative) Urine Blood Negative /uL (Negative) Urine Nitrite Negative (Negative) Urine Bilirubin Negative (Negative) Urine Urobilinogen Normal mg/dL (Negative) Urine Leukocyte Esterase Negative /uL (Negative) Urine RBC <1 /hpf (0 - 4) Urine Microscopic WBC 2 /HPF (0-5) Urine Squamous Epithelial Cells Few /hpf (<5) Urine Bacteria Few /hpf (None Seen) Urine Glucose Normal mg/dL (Normal) Other Laboratory Tests 04/28/25 03:35 Brief Hx & Hospital Course: 34 yo F with 3 days of abdominal pain, worse when eating. Reported having symptoms for a couple months. No fever, have chills. no diarrhea. nausea and vomiting prior to admission, vomiting bile, denies blood or coffee ground. have bitter taste in the morning, worse at night. GBUS with stones, negative sonographic sanchez. hepatic steatosis. patient was placed on clear liquid. started on maalox and pepcid. stable to tx home. need to follow up Condition at Discharge: Good Final Diagnosis/Problems List interactible abdominal pain cholelithiasis w/o cholecystitis dyspepsia with GERD hepatic steatosis morbid obesity Discharge Disposition: Home Discharge Instruct/Medications Scheduled PRN Ibuprofen Micronized (Ibuprofen), 800 MG PO Q6HR PRN Miscellaneous Medications Vit W/ Ferrous Fumara (), 1 TAB OR, (Reported) Discharge Statement: "Patient was advised to return to the ER or call 911 if any headaches, dizziness, shortness of breath, chest pain, abdominal pain, bleeding, fevers, or worsening of medical condition. Patient was counseled about treatment plan, medications, possible side effects, patientverbalized understanding. All questions were answered to the best of my ability. This discharge took greater then 30 minutes in planning, reviewing documentation, counseling the patient, and discussing with other team members." ASSESSMENT ASSESSMENT Assessment Date of Service: Apr 29, 2025 Billing Provider: MARGIE CHAWLA MD Common Visit Codes: 11576-DSX/OBS DISCH DAY >30min MARGIE CHAWLA MD Apr 29, 2025 11:23
[2025-04-29] MEDS ORDERED: MAA30LQ PO (11:25)
[2025-04-29] MEDS ORDERED: FAMO-161 PO (11:25)
== END 2025-04-29 12:53 | disposition home or self-care (01) ==
LOC: ER 17:08 → OVERFLOW 20:35 → WEST WING 04-28 13:40
PROVIDERS: ADMIT Student in an Organized Health Care Education/Training Program; ATTEND Student in an Organized Health Care Education/Training Program
DX: K80.20 Calculus of gallbladder without cholecystitis without obstruction (principal); K76.0 Fatty (change of) liver, not elsewhere classified; D72.829 Elevated white blood cell count, unspecified; E66.01 Morbid (severe) obesity due to excess calories; Z68.41 Body mass index [BMI] 40.0-44.9, adult; K21.9 Gastro-esophageal reflux disease without esophagitis; Z79.899 Other long term (current) drug therapy
CPT/HCPCS: 36415; 76705; 80053; 81001; 83690; 85025; G0378